=== PATIENT | male | born 1990 | race Caucasian/White ===

== ENCOUNTER 2017-08-18 18:07 | Emergency (ER) | payer OTHER ==
[~2017-08-18] VITALS: Ht 177.8 cm; Wt 84.4 kg
[2017-08-18 18:20] VITALS: BP 141/82
[2017-08-18 18:26] VITALS: BP 128/70
--- NOTE | 2017-08-18 18:31 | NUR ---
PT [facility]BS AT 1817
== END 2017-08-18 18:19 | disposition left against medical advice (07) ==
LOC: MED 18:07
DX: M79.672 Pain in left foot (principal); Z98.890 Other specified postprocedural states; Z53.21 Procedure and treatment not carried out due to patient leaving prior to being seen by health care provider